=== PATIENT | female | born 1990 | race Caucasian/White ===

== ENCOUNTER 2025-02-15 09:39 | Emergency (ER) | payer BC ==
[~2025-02-15] VITALS: Ht 154.9 cm; Wt 63.5 kg
[2025-02-15 10:03] VITALS: TEMP 97.9
--- NOTE | 2025-02-15 10:03 | NUR ---
"woke up not feeling well and my watch said I had low Oxygen"
[2025-02-15 10:05] VITALS: BP 125/88
[2025-02-15 11:35] VITALS: O2SAT 99
--- NOTE | 2025-02-15 11:35 | NUR ---
Patient discharged to home in stable condition. Written and verbal after care instructions given. Patient verbalizes understanding of instruction.
== END 2025-02-15 11:36 | disposition home or self-care (01) ==
LOC: ER 09:55
DX: F41.1 Generalized anxiety disorder (principal); R00.2 Palpitations; R20.2 Paresthesia of skin